=== PATIENT | male | born 1955 | race Hispanic/Latino ===

== ENCOUNTER → 2021-12-16 | Outpatient (CLI) | payer OTHER ==
[~2021-12-16] MED LIST: ATOR40TA71 PO; GLIP1TAB4 PO; LISI20TA24 PO; REGADENOSON 0.4 MG/5 ML PF SYG IVP SCH
== END | disposition home or self-care (01) ==
LOC: OIH 07:53
PROVIDERS: ATTEND Internal Medicine Cardiovascular Disease
DX: I11.9 Hypertensive heart disease without heart failure (principal); I35.0 Nonrheumatic aortic (valve) stenosis
CPT/HCPCS: 78452; 93017; J2785; A9500 ×2; 96374

== ENCOUNTER 2022-01-18 05:47 | Day surgery (SDC) | payer OTHER ==
[2022-01-16 13:00] LABS: BASOPHILS % (AUTO) 0.5 % (0.0-5.0); EOSINOPHILS % (AUTO) 3.4 % (0.0-8.0); HEMATOCRIT 43.9 % (42-54); LYMPHOCYTES % (AUTO) 24.2 % (21.0-51.0); MEAN CORPUSCULAR HEMOGLOBIN 28.7 pg (27.0-33.0); MEAN CORPUSCULAR HGB CONC 34.4 g/dL (32.0-36.0); MEAN CORPUSCULAR VOLUME 83.5 fL (79-99); MONOCYTES % (AUTO) 8.9 % (3.0-13.0); NEUTROPHILS % (AUTO) 62.6 % (40.0-77.0); PLATELET COUNT (AUTO) 205 K/uL (130-400); RED BLOOD CELL COUNT(AUTO) 5.26 MIL/uL (4.50-6.20); RED CELL DISTRIBUTION WIDTH 13.8 % (11.0-15.5); WHITE BLOOD COUNT (AUTO) 8.1 K/uL (4.8-10.8)
[2022-01-16 13:09] LABS: APPEARANCE,URINE CLEAR (CLEAR); BILIRUBIN,URINE NEGATIVE (NEGATIVE); COLOR,URINE YELLOW (YELLOW); GLUCOSE, URINE (UA) NEGATIVE (NEGATIVE); KETONES,URINE NEGATIVE (NEGATIVE); LEUKOCYTE ESTERASE ,URINE NEGATIVE Leu/uL (NEGATIVE); NITRATE,URINE NEGATIVE (NEGATIVE); OCCULT BLOOD,URINE NEGATIVE (NEGATIVE); PROTEIN,URINE NEGATIVE (NEGATIVE); UROBILINOGEN,URINE 0.2 mg/dL (0.2-1.0)
[2022-01-16 13:12] LABS: CREATININE 0.7 mg/dL (0.5-1.5)
[2022-01-16 13:14] LABS: PROTHROMBIN TIME 10.9 SEC (9.6-11.6)
[2022-01-16 13:15] LABS: PARTIAL THROMBOPLASTIN TIME 29.4 SEC (26.3-35.5)
[2022-01-16 13:35] LABS: B-TYPE NATRIURETIC PEPTIDE 30 pg/mL (0-100)
[2022-01-17 10:33] VITALS: BP 146/82
[~2022-01-18] VITALS: Ht 180.3 cm; Wt 119.3 kg
[2022-01-18] VITALS (13 sets, daily range): BP systolic 108–161; BP diastolic 52–78
[~2022-01-18 05:47] MED LIST changes: -REGADENOSON 0.4 MG/5 ML PF SYG IVP SCH
[2022-01-18] MEDS ORDERED: 0.9%NACL 1000ML 1,000 ML IV ONE (06:55)
[2022-01-18] MEDS ORDERED: HEPARIN 10,000 UNIT/10ML (1,000 UNIT/ML) VIAL ONE (07:32)
[2022-01-18] MEDS ORDERED: NITROGLYCERIN 50MG VIAL ONE (07:32)
[2022-01-18] MEDS ORDERED: IOHEXOL 350 MG/ML 100ML INFUS..BTL IV ONE (07:32)
[2022-01-18] MEDS ORDERED: IOHEXOL-350 75 ML VIAL IV ONE (07:32)
[2022-01-18] MEDS ORDERED: LIDOCAINE HCL 1% 20 ML VIAL ONE (07:32)
[2022-01-18] MEDS ORDERED: DEXTROSE 50%-WATER 50 ML DISP.SYRIN IV PRN (08:30)
[2022-01-18] MEDS ORDERED: GLUCAGON 1MG KIT 1 MG ML IM PRN (08:30)
[2022-01-18] MEDS ORDERED: INSULIN HUMULIN R 100 UNIT/ML 3ML SQ SCH (11:30)
== END 2022-01-18 15:30 | disposition home or self-care (01) ==
LOC: DAH 05:47 → EDSTATUS 12:00 → DAH 15:30
PROVIDERS: ATTEND Internal Medicine Cardiovascular Disease
DX: I35.0 Nonrheumatic aortic (valve) stenosis (principal); R94.39 Abnormal result of other cardiovascular function study; I20.8 Other forms of angina pectoris; Z98.890 Other specified postprocedural states; Z72.89 Other problems related to lifestyle; Z79.01 Long term (current) use of anticoagulants; Z79.899 Other long term (current) drug therapy
CPT/HCPCS: 80048; 83880; 85025; 85610; 85730; 81003; 36415; 71045; 93005; 93460; 93567; 82948 ×3; C1769; C1894 ×2; J7030; J1644 ×2; Q9967 ×2; A4215; A4222; A4221; A4663; A4216; A4606; Q9965; A4223 ×3; J3490

== ENCOUNTER 2022-06-14 22:22 | Emergency (ER) | payer OTHER ==
[~2022-06-14] VITALS: Ht 182.9 cm; Wt 117.0 kg
[~2022-06-14 22:22] MED LIST changes: +AEC81 PO; +FURO20TA6 PO; +LISI10TA24 PO; -LISI20TA24 PO; +METO25 PO; +ZOLP5TAB8 PO
[2022-06-14 22:48] LABS: BASOPHILS % (AUTO) 0.4 % (0.0-5.0); EOSINOPHILS % (AUTO) 2.4 % (0.0-8.0); HEMATOCRIT 35.6 % (42-54); LYMPHOCYTES % (AUTO) 16.9 % (21.0-51.0); MEAN CORPUSCULAR HEMOGLOBIN 27.4 pg (27.0-33.0); MEAN CORPUSCULAR HGB CONC 32.3 g/dL (32.0-36.0); MEAN CORPUSCULAR VOLUME 84.8 fL (79-99); MONOCYTES % (AUTO) 10.1 % (3.0-13.0); NEUTROPHILS % (AUTO) 69.7 % (40.0-77.0); PLATELET COUNT (AUTO) 306 K/uL (130-400); RED CELL DISTRIBUTION WIDTH 14.2 % (11.0-15.5); WHITE BLOOD COUNT (AUTO) 12.7 K/uL (4.8-10.8)
[2022-06-14 23:08] LABS: CREATININE 0.8 mg/dL (0.5-1.5); POTASSIUM 3.9 mmol/L (3.5-5.1)
[2022-06-14 23:10] LABS: ALBUMIN 3.1 g/dL (3.5-5.0); MAGNESIUM 1.7 mg/dL (1.80-2.40)
[2022-06-15] MEDS ORDERED: IOHEXOL 350 MG/ML 100ML INFUS..BTL IV ONE (00:18)
[2022-06-15] MEDS ORDERED: ZOSYN 3.375GM +NS 50ML IVPB ONE (00:30)
[2022-06-15] MEDS ORDERED: CLIN-141 PO (01:10)
[2022-06-15 01:18] VITALS: BP 136/68
== END 2022-06-15 01:46 | disposition home or self-care (01) ==
LOC: EDH 22:22
DX: L03.311 Cellulitis of abdominal wall (principal); I25.10 Atherosclerotic heart disease of native coronary artery without angina pectoris; E11.9 Type 2 diabetes mellitus without complications; E78.00 Pure hypercholesterolemia, unspecified; M96.840 Postprocedural hematoma of a musculoskeletal structure following a musculoskeletal system procedure; I10 Essential (primary) hypertension; Z79.82 Long term (current) use of aspirin; Z79.899 Other long term (current) drug therapy; Z20.822 Contact with and (suspected) exposure to COVID-19
CPT/HCPCS: 99285; 71045; 87635; 83735; 84484; 80053; 83880; 85025; 87040 ×2; 87070; 87076; 87077 ×3; 87186 ×3; 83605; 36415; 76882; 93005; 74177; 96365; 96366; C9803; J2543; Q9967

== ENCOUNTER → 2022-09-20 | Outpatient (CLI) | payer OTHER ==
[~2022-09-20] MED LIST changes: +CLIN-141 PO
== END | disposition home or self-care (01) ==
LOC: SHCH 14:47
PROVIDERS: ATTEND Internal Medicine Cardiovascular Disease
DX: I08.0 Rheumatic disorders of both mitral and aortic valves (principal); I73.9 Peripheral vascular disease, unspecified
CPT/HCPCS: 93306; 93925

== ENCOUNTER 2023-12-27 08:25 | Inpatient (IN) | payer OTHER ==
[~2023-12-27] VITALS: Ht 177.8 cm; Wt 117.1 kg
[~2023-12-27 08:25] MED LIST changes: +ACET-2079 PO; +FAMO-136 PO; +KETO10 PO; +METO-296 PO; +TAMS-1 PO
[2023-12-27 08:58] LABS: CREATININE 0.6 mg/dL (0.5-1.3); POTASSIUM 4.7 mmol/L (3.5-5.1)
[2023-12-27 09:01] LABS: BASOPHILS # (AUTO) 0.05 K/uL (0.00-0.20); BASOPHILS % (AUTO) 0.6 % (0.0-5.0); EOSINOPHILS # (AUTO) 0.17 K/uL (0.00-0.70); EOSINOPHILS % (AUTO) 2.2 % (0.0-8.0); HEMATOCRIT 43.7 % (42-54); IMMATURE GRANULOCYTE ABSOLUTE 0.03 K/uL (0-1); LYMPHOCYTES # (AUTO) 1.6 K/uL (1.0-4.8); LYMPHOCYTES % (AUTO) 20.9 % (21.0-51.0); MEAN CORPUSCULAR HEMOGLOBIN 28.5 pg (27.0-33.0); MEAN CORPUSCULAR VOLUME 86.4 fL (79-99); MONOCYTES # (AUTO) 0.7 K/uL (0.1-1.0); NEUTROPHILS # (AUTO) 5.2 K/uL (1.8-7.7); NEUTROPHILS % (AUTO) 66.9 % (40.0-77.0); PLATELET COUNT (AUTO) 228 K/uL (130-400); RED BLOOD CELL COUNT(AUTO) 5.06 MIL/uL (4.50-6.20); RED CELL DISTRIBUTION WIDTH 13.4 % (11.0-15.5); WHITE BLOOD COUNT (AUTO) 7.8 K/uL (4.8-10.8)
[2023-12-27 09:32] LABS: APPEARANCE,URINE CLEAR (CLEAR); BILIRUBIN,URINE NEGATIVE (NEGATIVE); COLOR,URINE YELLOW (YELLOW); GLUCOSE, URINE (UA) NEGATIVE (NEGATIVE); KETONES,URINE NEGATIVE (NEGATIVE); LEUKOCYTE ESTERASE ,URINE NEGATIVE Leu/uL (NEGATIVE); NITRATE,URINE NEGATIVE (NEGATIVE); OCCULT BLOOD,URINE NEGATIVE (NEGATIVE); PH,URINE 5.5 (5.0-8.0); PROTEIN,URINE 10 mg/dL (NEGATIVE); UROBILINOGEN,URINE 0.2 mg/dL (0.2-1.0)
[2023-12-27 09:44] LABS: ADD UA MICROSCOPIC YES
[2023-12-27 09:51] LABS: BACTERIA,URINE RARE /HPF (None Seen); MUCUS,URINE RARE LPF (None Seen); SQUAMOUS EPITHELIAL CELL,UR RARE /HPF (0-2); WBC,URINE 0-1 /HPF (0-1)
[2023-12-27] MEDS: LACTATED RINGERS 1000ML 1,000 ML IV ONE (10:05)
[2023-12-27] MEDS ORDERED: ondanSETRON 4MG INJ IVP PRN (11:00)
[2023-12-27] MEDS ORDERED: acetaMINOPHEN 325 MG TAB PO PRN (11:00)
[2023-12-27] MEDS: LACTATED RINGERS 1000ML 1,000 ML IV SCH (11:07)
[2023-12-27 11:12] LABS: HEMOGLOBIN A1C 6.6 % (4.0-6.0)
[2023-12-27] MEDS ORDERED: METO25TA6 PO (12:00)
[2023-12-27] MEDS ORDERED: LISI20TA24 PO (12:01)
[2023-12-27] MEDS ORDERED: CLOT45CR62 VG (12:02)
[2023-12-27 12:50] VITALS: BP 128/77; PULSE 85; RESP 15; TEMP 98.2
[2023-12-27 14:00] VITALS: O2SAT 95
[2023-12-27] MEDS ORDERED: CLOTRIMAZOLE 45 GM VG SCH (14:00)
[2023-12-27 20:00] VITALS: BP 144/79; PULSE 76; RESP 20; TEMP 97.9
[2023-12-27] MEDS: FAMOTIDINE 20MG VIAL IV SCH (20:26)
[2023-12-27] MEDS: GLIPIZIDE METFORMIN PO SCH (20:27)
[2023-12-28] VITALS (7 sets, daily range): BP systolic 133–165; BP diastolic 74–91; PULSE 71–83; RESP 18–20; TEMP 97.8–98.3; O2SAT 100
[2023-12-28 06:58] LABS: CREATININE 0.5 mg/dL (0.5-1.3); POTASSIUM 3.5 mmol/L (3.5-5.1)
[2023-12-28] MEDS: LISINOPRIL 20 MG TABLET PO SCH (09:50)
[2023-12-28] MEDS: metoPROLOL tartRATE 25 MG TAB PO SCH (09:50)
[2023-12-28] MEDS ORDERED: LACTATED RINGERS IV ONE ×2 (11:30)
[2023-12-28] MEDS ORDERED: PoTASSium chloRIDE 20MEQ/100ML 100 ML IV PRN (12:30)
[2023-12-28] MEDS ORDERED: PoTASSium chl 10% ELIXIR 20MEQ 20 MEQ/15 ML UDCUP PO PRN (12:30)
[2023-12-28] MEDS: LACTATED RINGERS IV ONE (12:47)
[2023-12-29] VITALS: BP_SYST 160; BP_SYST 162; BP_DIAS 83; BP_DIAS 88; PULSE 71; PULSE 75; RESP 18; TEMP 97.3; TEMP 98
[2023-12-29 04:00] VITALS: BP 153/80; PULSE 74; RESP 20; TEMP 98
[2023-12-29 04:28] LABS: BASOPHILS # (AUTO) 0.03 K/uL (0.00-0.20); BASOPHILS % (AUTO) 0.4 % (0.0-5.0); EOSINOPHILS # (AUTO) 0.45 K/uL (0.00-0.70); EOSINOPHILS % (AUTO) 5.5 % (0.0-8.0); HEMATOCRIT 37.4 % (42-54); IMMATURE GRANULOCYTE ABSOLUTE 0.03 K/uL (0-1); LYMPHOCYTES # (AUTO) 1.7 K/uL (1.0-4.8); LYMPHOCYTES % (AUTO) 20.8 % (21.0-51.0); MEAN CORPUSCULAR HEMOGLOBIN 28.3 pg (27.0-33.0); MEAN CORPUSCULAR HGB CONC 32.9 g/dL (32.0-36.0); MEAN CORPUSCULAR VOLUME 86.2 fL (79-99); MONOCYTES # (AUTO) 0.8 K/uL (0.1-1.0); MONOCYTES % (AUTO) 9.2 % (3.0-13.0); NEUTROPHILS # (AUTO) 5.2 K/uL (1.8-7.7); NEUTROPHILS % (AUTO) 63.7 % (40.0-77.0); PLATELET COUNT (AUTO) 189 K/uL (130-400); RED BLOOD CELL COUNT(AUTO) 4.34 MIL/uL (4.50-6.20); RED CELL DISTRIBUTION WIDTH 13.3 % (11.0-15.5); WHITE BLOOD COUNT (AUTO) 8.2 K/uL (4.8-10.8)
[2023-12-29 04:55] LABS: BILIRUBIN,TOTAL 0.6 mg/dL (0.2-1.0); CREATININE 0.6 mg/dL (0.5-1.3); POTASSIUM 3.5 mmol/L (3.5-5.1); THYROID STIMULATING HORMONE 7.84 uIU/mL (0.36-3.74); TOTAL PROTEIN, SERUM 5.8 g/dL (6.0-8.3)
[2023-12-29] MEDS: PoTASSium chloRIDE 20MEQ ER 20 MEQ ERTAB PO PRN (05:54)
[2023-12-29 08:00] VITALS: BP 150/102; PULSE 81; RESP 16; TEMP 98.8
[2023-12-29] MEDS: amLODIPine 2.5 MG TAB PO SCH (09:31)
[2023-12-29 12:00] VITALS: BP 160/79; PULSE 66; RESP 18; TEMP 97.8
[2023-12-29] MEDS: LACTATED RINGERS 1000ML IV SCH (14:14)
[2023-12-29 16:00] VITALS: BP 179/90; PULSE 71; RESP 16; TEMP 97.5
[2023-12-29 20:00] VITALS: BP 145/80; PULSE 75; RESP 20; TEMP 98.2; O2SAT 98
[2023-12-30] VITALS (7 sets, daily range): BP systolic 131–180; BP diastolic 71–91; PULSE 71–81; RESP 18–19; TEMP 97.3–98.3; O2SAT 96–97
[2023-12-30] MEDS: NYSTatin 15 GM POWDER TP SCH (02:19)
[2023-12-30 04:30] LABS: BASOPHILS # (AUTO) 0.03 K/uL (0.00-0.20); BASOPHILS % (AUTO) 0.4 % (0.0-5.0); EOSINOPHILS # (AUTO) 0.36 K/uL (0.00-0.70); EOSINOPHILS % (AUTO) 4.3 % (0.0-8.0); HEMATOCRIT 37.3 % (42-54); IMMATURE GRANULOCYTE ABSOLUTE 0.02 K/uL (0-1); LYMPHOCYTES # (AUTO) 1.6 K/uL (1.0-4.8); LYMPHOCYTES % (AUTO) 18.8 % (21.0-51.0); MEAN CORPUSCULAR HEMOGLOBIN 29.1 pg (27.0-33.0); MEAN CORPUSCULAR HGB CONC 33.8 g/dL (32.0-36.0); MEAN CORPUSCULAR VOLUME 86.1 fL (79-99); MONOCYTES # (AUTO) 0.8 K/uL (0.1-1.0); MONOCYTES % (AUTO) 9.1 % (3.0-13.0); NEUTROPHILS # (AUTO) 5.7 K/uL (1.8-7.7); NEUTROPHILS % (AUTO) 67.2 % (40.0-77.0); PLATELET COUNT (AUTO) 190 K/uL (130-400); RED BLOOD CELL COUNT(AUTO) 4.33 MIL/uL (4.50-6.20); RED CELL DISTRIBUTION WIDTH 13.4 % (11.0-15.5); WHITE BLOOD COUNT (AUTO) 8.5 K/uL (4.8-10.8)
[2023-12-30 04:45] LABS: INR 1.06 (0.85-1.15); PROTHROMBIN TIME 11.4 SEC (9.6-11.6)
[2023-12-30 04:46] LABS: PARTIAL THROMBOPLASTIN TIME 28.4 SEC (26.3-35.5)
[2023-12-30 05:07] LABS: ALBUMIN 2.9 g/dL (3.5-5.0); BILIRUBIN,TOTAL 0.6 mg/dL (0.2-1.0); CREATININE 0.5 mg/dL (0.5-1.3); POTASSIUM 3.5 mmol/L (3.5-5.1); TOTAL PROTEIN, SERUM 5.9 g/dL (6.0-8.3)
[2023-12-30 05:25] LABS: T4 (THYROXINE) 6.2 ug/dL (4.7-13.3)
[2023-12-30] MEDS: HEParin 5,000 UNIT VIAL SQ SCH (08:04)
[2023-12-30] MEDS: amLODIPine 2.5 MG TAB PO SCH (09:53)
[2023-12-30] MEDS ORDERED: hydrALAZine 20MG/ML VIAL IV PRN (11:00)
[2023-12-30] MEDS: metoPROLOL tartRATE 25 MG TAB PO SCH (11:00)
[2023-12-31] VITALS: BP 143/86; PULSE 69; RESP 18; TEMP 98.8
[2023-12-31 04:00] VITALS: BP 141/76; PULSE 68; RESP 18; TEMP 98.7
[2023-12-31 04:02] LABS: HEMATOCRIT 37.8 % (42-54); MEAN CORPUSCULAR HEMOGLOBIN 28.9 pg (27.0-33.0); MEAN CORPUSCULAR HGB CONC 33.3 g/dL (32.0-36.0); MEAN CORPUSCULAR VOLUME 86.7 fL (79-99); RED BLOOD CELL COUNT(AUTO) 4.36 MIL/uL (4.50-6.20); RED CELL DISTRIBUTION WIDTH 13.5 % (11.0-15.5); WHITE BLOOD COUNT (AUTO) 9.1 K/uL (4.8-10.8)
[2023-12-31 04:36] LABS: CREATININE 0.6 mg/dL (0.5-1.3); POTASSIUM 3.7 mmol/L (3.5-5.1)
[2023-12-31 08:00] VITALS: BP 148/87; PULSE 68; RESP 15; TEMP 97.9; O2SAT 93
[2023-12-31 11:41] VITALS: BP 157/90; PULSE 81; RESP 15; TEMP 98.7
[2023-12-31 16:00] VITALS: BP 157/82; PULSE 82; RESP 15; TEMP 98.3
[2023-12-31 20:00] VITALS: BP 151/83; PULSE 91; RESP 16; TEMP 99.4; O2SAT 96
[2024-01-01] VITALS (8 sets, daily range): BP systolic 102–159; BP diastolic 59–89; PULSE 68–89; RESP 17–20; TEMP 98.2–98.8; O2SAT 94–96
[2024-01-01 04:31] LABS: MEAN CORPUSCULAR HEMOGLOBIN 28.8 pg (27.0-33.0); MEAN CORPUSCULAR HGB CONC 33.1 g/dL (32.0-36.0); MEAN CORPUSCULAR VOLUME 87.1 fL (79-99); RED BLOOD CELL COUNT(AUTO) 4.48 MIL/uL (4.50-6.20); RED CELL DISTRIBUTION WIDTH 13.6 % (11.0-15.5)
[2024-01-01 05:06] LABS: CREATININE 0.5 mg/dL (0.5-1.3); POTASSIUM 3.6 mmol/L (3.5-5.1)
[2024-01-01] MEDS: amLODIPine 5 MG TAB PO SCH (09:56)
[2024-01-01] MEDS ORDERED: SODIUM BICARB IV SCH (12:30)
[2024-01-01] MEDS ORDERED: NACL IV SCH (12:30)
[2024-01-01] MEDS ORDERED: DEXTROSE IV SCH (12:30)
[2024-01-01] MEDS: SODIUM BICARB 50MEQ 50ML VIAL 150 MEQ in DEXTROSE 5%-WATER 1,000 ML IV SCH (13:00)
[2024-01-02 04:49] VITALS: BP 149/82; PULSE 80; RESP 20; TEMP 98.4
[2024-01-02 05:07] LABS: HEMATOCRIT 38.7 % (42-54); MEAN CORPUSCULAR HEMOGLOBIN 28.5 pg (27.0-33.0); MEAN CORPUSCULAR HGB CONC 33.3 g/dL (32.0-36.0); MEAN CORPUSCULAR VOLUME 85.6 fL (79-99); RED BLOOD CELL COUNT(AUTO) 4.52 MIL/uL (4.50-6.20); RED CELL DISTRIBUTION WIDTH 13.6 % (11.0-15.5); WHITE BLOOD COUNT (AUTO) 10.2 K/uL (4.8-10.8)
[2024-01-02 05:38] LABS: CREATININE 0.6 mg/dL (0.5-1.3); POTASSIUM 3.2 mmol/L (3.5-5.1)
[2024-01-02 07:50] VITALS: BP 136/76; PULSE 77; RESP 20; TEMP 98.2
[2024-01-02 08:45] VITALS: O2SAT 94
[2024-01-02 11:52] VITALS: BP 133/70; PULSE 72; RESP 20; TEMP 98.1
[2024-01-02] MEDS: 0.9%NACL 1000ML 1,000 ML IV SCH (12:31)
[2024-01-02] MEDS ORDERED: PHARMACY COMMUNICATION MISC SCH (17:00)
[2024-01-02 20:00] VITALS: BP 137/72; PULSE 78; RESP 19; TEMP 98.3; O2SAT 96
[2024-01-02] MEDS: Solu-medROL 125MG VIAL IVP SCH (20:28)
[2024-01-03] VITALS (7 sets, daily range): BP systolic 148–170; BP diastolic 68–99; PULSE 74–85; RESP 18–21; TEMP 97.5–98.6; O2SAT 95
[2024-01-03 04:20] LABS: EOSINOPHILS # (AUTO) 0.01 K/uL (0.00-0.70); EOSINOPHILS % (AUTO) 0.1 % (0.0-8.0); HEMATOCRIT 40.1 % (42-54); IMMATURE GRANULOCYTE ABSOLUTE 0.03 K/uL (0-1); LYMPHOCYTES # (AUTO) 0.8 K/uL (1.0-4.8); LYMPHOCYTES % (AUTO) 9.5 % (21.0-51.0); MEAN CORPUSCULAR HEMOGLOBIN 28.5 pg (27.0-33.0); MEAN CORPUSCULAR HGB CONC 32.9 g/dL (32.0-36.0); MEAN CORPUSCULAR VOLUME 86.6 fL (79-99); MONOCYTES # (AUTO) 0.2 K/uL (0.1-1.0); MONOCYTES % (AUTO) 2.1 % (3.0-13.0); NEUTROPHILS # (AUTO) 7.5 K/uL (1.8-7.7); NEUTROPHILS % (AUTO) 87.9 % (40.0-77.0); PLATELET COUNT (AUTO) 197 K/uL (130-400); RED BLOOD CELL COUNT(AUTO) 4.63 MIL/uL (4.50-6.20); RED CELL DISTRIBUTION WIDTH 13.4 % (11.0-15.5); WHITE BLOOD COUNT (AUTO) 8.5 K/uL (4.8-10.8)
[2024-01-03 04:55] LABS: ALBUMIN 2.8 g/dL (3.5-5.0); BILIRUBIN,TOTAL 0.6 mg/dL (0.2-1.0); CREATININE 0.6 mg/dL (0.5-1.3); MAGNESIUM 2.1 mg/dL (1.80-2.40); POTASSIUM 4.1 mmol/L (3.5-5.1); TOTAL PROTEIN, SERUM 6.6 g/dL (6.0-8.3)
[2024-01-03 05:29] LABS: PLATELET MORPHOLOGY PLT CLUMPS PRESENT; WBC MORPHOLOGY CONSISTENT W/DIFF
[2024-01-04] VITALS: BP 167/89; PULSE 80; RESP 20; TEMP 97.8
[2024-01-04 04:00] VITALS: BP 152/89; PULSE 73; RESP 20; TEMP 99.2
[2024-01-04 05:12] LABS: EOSINOPHILS # (AUTO) 0.01 K/uL (0.00-0.70); EOSINOPHILS % (AUTO) 0.1 % (0.0-8.0); IMMATURE GRANULOCYTE ABSOLUTE 0.05 K/uL (0-1); LYMPHOCYTES # (AUTO) 0.9 K/uL (1.0-4.8); LYMPHOCYTES % (AUTO) 9.1 % (21.0-51.0); MEAN CORPUSCULAR HEMOGLOBIN 28.4 pg (27.0-33.0); MEAN CORPUSCULAR HGB CONC 32.9 g/dL (32.0-36.0); MEAN CORPUSCULAR VOLUME 86.4 fL (79-99); MONOCYTES # (AUTO) 0.3 K/uL (0.1-1.0); MONOCYTES % (AUTO) 2.8 % (3.0-13.0); NEUTROPHILS # (AUTO) 8.2 K/uL (1.8-7.7); NEUTROPHILS % (AUTO) 87.5 % (40.0-77.0); PLATELET COUNT (AUTO) 217 K/uL (130-400); RED CELL DISTRIBUTION WIDTH 13.6 % (11.0-15.5); WHITE BLOOD COUNT (AUTO) 9.4 K/uL (4.8-10.8)
[2024-01-04 05:43] LABS: ALBUMIN 2.8 g/dL (3.5-5.0); BILIRUBIN,TOTAL 0.3 mg/dL (0.2-1.0); CREATININE 0.5 mg/dL (0.5-1.3); TOTAL PROTEIN, SERUM 6.5 g/dL (6.0-8.3)
[2024-01-04 08:00] VITALS: BP 162/84; PULSE 78; RESP 15; TEMP 98.3
[2024-01-04 11:58] VITALS: BP 158/74; PULSE 76; RESP 16; TEMP 98.4
[2024-01-04 16:00] VITALS: BP_SYST 115; BP_SYST 119; BP_DIAS 67; BP_DIAS 73; PULSE 79; PULSE 81; RESP 15; TEMP 98.3; TEMP 98.5
[2024-01-04 20:00] VITALS: BP 143/76; PULSE 74; RESP 19; TEMP 97.4
[2024-01-05] VITALS: BP 147/89; PULSE 73; RESP 20; TEMP 97.8
[2024-01-05 04:00] VITALS: BP 156/85; PULSE 71; RESP 20; TEMP 97.9
[2024-01-05 04:46] LABS: BASOPHILS # (AUTO) 0.01 K/uL (0.00-0.20); BASOPHILS % (AUTO) 0.1 % (0.0-5.0); HEMATOCRIT 35.2 % (42-54); IMMATURE GRANULOCYTE ABSOLUTE 0.04 K/uL (0-1); LYMPHOCYTES # (AUTO) 0.9 K/uL (1.0-4.8); LYMPHOCYTES % (AUTO) 12.5 % (21.0-51.0); MEAN CORPUSCULAR HEMOGLOBIN 28.2 pg (27.0-33.0); MEAN CORPUSCULAR HGB CONC 32.7 g/dL (32.0-36.0); MEAN CORPUSCULAR VOLUME 86.3 fL (79-99); MONOCYTES # (AUTO) 0.3 K/uL (0.1-1.0); MONOCYTES % (AUTO) 3.6 % (3.0-13.0); NEUTROPHILS # (AUTO) 5.8 K/uL (1.8-7.7); NEUTROPHILS % (AUTO) 83.2 % (40.0-77.0); PLATELET COUNT (AUTO) 223 K/uL (130-400); RED BLOOD CELL COUNT(AUTO) 4.08 MIL/uL (4.50-6.20); RED CELL DISTRIBUTION WIDTH 13.7 % (11.0-15.5)
[2024-01-05 05:20] LABS: ALBUMIN 2.7 g/dL (3.5-5.0); BILIRUBIN,TOTAL 0.3 mg/dL (0.2-1.0); CREATININE 0.6 mg/dL (0.5-1.3); MAGNESIUM 1.9 mg/dL (1.80-2.40); POTASSIUM 4.2 mmol/L (3.5-5.1)
[2024-01-05 08:00] VITALS: BP 152/91; PULSE 78; RESP 19; TEMP 97.3
[2024-01-05 11:42] VITALS: BP 134/80; PULSE 78; RESP 16; TEMP 98.1
[2024-01-05 16:00] VITALS: BP 146/82; PULSE 73; RESP 18; TEMP 97.7
[2024-01-05] MEDS: INSULIN humuLIN R 100 UNIT/ML 3ML SQ SCH (16:30)
[2024-01-05 19:00] VITALS: BP 161/98; PULSE 72; RESP 20; TEMP 97.8
[2024-01-06] VITALS: BP 150/82; PULSE 61; RESP 20; TEMP 97.5
[2024-01-06 04:00] VITALS: BP 160/94; PULSE 66; RESP 20; TEMP 97.4
[2024-01-06 04:14] LABS: BASOPHILS # (AUTO) 0.04 K/uL (0.00-0.20); BASOPHILS % (AUTO) 0.5 % (0.0-5.0); EOSINOPHILS # (AUTO) 0.21 K/uL (0.00-0.70); EOSINOPHILS % (AUTO) 2.6 % (0.0-8.0); HEMATOCRIT 37.9 % (42-54); IMMATURE GRANULOCYTE ABSOLUTE 0.03 K/uL (0-1); LYMPHOCYTES # (AUTO) 2.6 K/uL (1.0-4.8); LYMPHOCYTES % (AUTO) 32.1 % (21.0-51.0); MEAN CORPUSCULAR HEMOGLOBIN 28.8 pg (27.0-33.0); MEAN CORPUSCULAR VOLUME 87.3 fL (79-99); MONOCYTES # (AUTO) 0.9 K/uL (0.1-1.0); MONOCYTES % (AUTO) 10.7 % (3.0-13.0); NEUTROPHILS # (AUTO) 4.3 K/uL (1.8-7.7); NEUTROPHILS % (AUTO) 53.7 % (40.0-77.0); PLATELET COUNT (AUTO) 212 K/uL (130-400); RED BLOOD CELL COUNT(AUTO) 4.34 MIL/uL (4.50-6.20); RED CELL DISTRIBUTION WIDTH 13.5 % (11.0-15.5)
[2024-01-06 04:51] LABS: ALBUMIN 2.8 g/dL (3.5-5.0); BILIRUBIN,TOTAL 0.3 mg/dL (0.2-1.0); CREATININE 0.5 mg/dL (0.5-1.3); MAGNESIUM 1.8 mg/dL (1.80-2.40); POTASSIUM 3.7 mmol/L (3.5-5.1)
[2024-01-06 07:58] VITALS: BP 168/98; PULSE 70; RESP 16; TEMP 98
[2024-01-06 08:00] VITALS: O2SAT 92
[2024-01-06] MEDS: PoTASSium chloRIDE 20MEQ ER 20 MEQ ERTAB PO ONE (09:39)
[2024-01-06] MEDS: LACTULOSE 20 GM/30 ML UDCUP PO PRN (09:59)
[2024-01-06] MEDS ORDERED: doCUSate SODIUM 100 MG CAP PO PRN (10:00)
[2024-01-06 12:00] VITALS: BP 166/88; PULSE 73; RESP 18; TEMP 98.7
[2024-01-06] MEDS ORDERED: NYSTPW TP (13:06)
[2024-01-06] MEDS ORDERED: AMLO5TAB4 PO (13:06)
[2024-01-06] MEDS ORDERED: polyETHYLene GLYCol 3350 17 GM POWD.PACK PO SCH (16:00)
== END 2024-01-06 16:30 | disposition home or self-care (01) | DRG 92 ==
LOC: EDH 08:25 → EDHIP 10:50 → 4CH 11:58
PROVIDERS: ADMIT Hospitalist; ATTEND Hospitalist
DX: G72.0 Drug-induced myopathy (principal); E87.1 Hypo-osmolality and hyponatremia; M62.82 Rhabdomyolysis; I16.1 Hypertensive emergency; M19.09 Primary osteoarthritis, other specified site; T46.6X5A Adverse effect of antihyperlipidemic and antiarteriosclerotic drugs, initial encounter; E11.40 Type 2 diabetes mellitus with diabetic neuropathy, unspecified; E11.65 Type 2 diabetes mellitus with hyperglycemia; E78.5 Hyperlipidemia, unspecified; Y92.89 Other specified places as the place of occurrence of the external cause; Z95.2 Presence of prosthetic heart valve; Z79.899 Other long term (current) drug therapy; Z87.891 Personal history of nicotine dependence
CPT/HCPCS: 36415; 71045; 72100; 73720; 80048; 80053; 80061; 81001; 82306; 82550; 82948; 83036; 83735; 83874; 83880; 84436; 84443; 84484; 85025; 85027; 85610; 85730; 93005; 93306; 93356; 99291; G0378; J1644; J2919; J3490; J7042; J7070